=== PATIENT | female | born 1975 | race African-American/Black ===

== ENCOUNTER 2016-06-18 18:03 | Emergency (ER) | payer MEDICAID ==
[2014-02-21 08:15] VITALS: BMI 40.9
[2016-06-18 18:54] LABS: APPEARANCE CLEAR (CLEAR); BILIRUBIN NEGATIVE (NEGATIVE); COLOR STRAW (YELLOW); GLUCOSE NEGATIVE (NEGATIVE); KETONE NEGATIVE (NEGATIVE); LEUKOCYTE ESTERASE TRACE (NEGATIVE); NITRITE NEGATIVE (NEGATIVE); PROTEIN NEGATIVE (NEGATIVE); UROBILINOGEN NORMAL (NORMAL)
[2016-06-18 18:55] LABS: BACTERIA FEW /hpf (NONE SEEN); EPITHELIAL CELLS 0-5 /hpf (0-5); RED CELLS - URINE NONE SEEN /hpf (0-5); WHITE CELLS - URINE 0-5 /hpf (0-5)
== END 2016-06-18 19:40 | disposition home or self-care (01) ==
LOC: D.ER 18:03
PROVIDERS: Emergency Medicine
DX: R35.0 Frequency of micturition (principal); R10.2 Pelvic and perineal pain; F17.200 Nicotine dependence, unspecified, uncomplicated

== ENCOUNTER 2016-10-03 10:19 | Emergency (ER) | payer SELFPAY ==
[2014-02-21 08:15] VITALS: BMI 40.9
[2016-10-03 11:07] LABS: BASOPHILS 0.1 % (0-2); EOSINOPHILS 2.2 % (0-7); HEMOGLOBIN 13.7 g/dL (12-16); IMMATURE GRANULOCYTES 0.3 % (0-5); LYMPHOCYTES 18.3 % (15-50); MCH 29.9 pg (26.0-34.0); MCHC 33.4 g/dL (31.0-37.0); MCV 89.5 fL (80.0-100.0); MEAN PLATELET VOLUME 11.6 fL (7.4-10.4); MONOCYTES 9.1 % (2-11); PLATELET COUNT 245 10x3/uL (130-400); RBC 4.58 10x6/uL (4.00-5.40); WBC 8.8 10x3/uL (4.8-10.8)
== END 2016-10-03 11:45 | disposition home or self-care (01) ==
LOC: D.ER 10:19
PROVIDERS: Emergency Medicine
DX: J20.9 Acute bronchitis, unspecified (principal); R06.2 Wheezing

== ENCOUNTER → 2017-07-08 12:58 | Outpatient (CLI) | payer MEDICAID ==
[2014-02-21 08:15] VITALS: BMI 40.9
== END | disposition home or self-care (01) ==
LOC: D.MAMMO 06-08 15:45
DX: Z12.31 Encounter for screening mammogram for malignant neoplasm of breast (principal)

== ENCOUNTER 2018-06-06 07:04 | Day surgery (SDC) | payer OTHER ==
[2018-06-06] VITALS (7 sets, daily range): BP systolic 119–141; BP diastolic 65–84; Ht 157.5 cm; Wt 93.0 kg
[~2018-06-06] VITALS: Ht 157.5 cm; Wt 93.0 kg
[2018-06-06 07:41] LABS: BASOPHILS 0.4 % (0-2); EOSINOPHILS 3.2 % (0-7); HEMATOCRIT 39.9 % (36.0-48.0); HEMOGLOBIN 13.3 g/dL (12-16); LYMPHOCYTES 32.4 % (15-50); MCH 29.2 pg (26.0-34.0); MCHC 33.3 g/dL (31.0-37.0); MCV 87.7 fL (80.0-100.0); MEAN PLATELET VOLUME 11.9 fL (7.4-10.4); MONOCYTES 7.8 % (2-11); NEUTROPHILS 56.2 % (40-80); PLATELET COUNT 211 10x3/uL (130-400); RBC 4.55 10x6/uL (4.00-5.40); RDW 13.6 % (11.5-14.5)
[2018-06-06 07:50] LABS: CALC OSMOLALITY 281 mosm/kg (275-300); CALCIUM 8.4 mg/dL (8.5-10.1); CARBON DIOXIDE 26.2 mmol/L (21.0-32.0); CHLORIDE - SERUM 108 mmol/L (98-107); CREATININE - SERUM 0.8 mg/dL (0.6-1.3); GLUCOSE 102 mg/dL (74-106); POTASSIUM - SERUM 3.8 mmol/L (3.5-5.1); SODIUM 142 mmol/L (136-145); UREA NITROGEN 10 mg/dL (7-18); eGFR NON AFRICAN AMERICAN 84 mL/min (90-120)
[2018-06-06] MEDS ORDERED: HYDROCODON-ACE1 EAC7 (07:59)
[2018-06-06 08:03] LABS: HCG URINE NEGATIVE (NEGATIVE)
--- NOTE | 2018-06-06 15:08 | NUR ---
THIS RN AT BEDSIDE FOR DILAUDID PAIN MEDICATION ADMIN. FAMILY X 3 PRESENT. PT HAS PERIODS OF SLEEP, BUT WAKES AND ABLE TO CONVERSE WITH FAMILY. PT REPORTS ABD PAIN 10/10. 2 ML OF DILAUDID DILUTED IN 5ML GIVEN SIVP OVER 5MINS. PT REQUESTING TO BE REPOSITIONED. WILL HAVE 2ND RN TO COME TO ROOM TO ASSIST.
--- NOTE | 2018-06-06 15:45 | NUR ---
THIS NURSE TO ROOM- VS DONE. PT DROWSY BUT RESPONSIVE TO VERBAL STIMULI. INCUSIONS WNL. FAMILY AT BEDSIDE.
--- NOTE | 2018-06-06 15:50 | NUR ---
ICE WATER GIVEN ALONG WITH SPRITE- PT TOLERATING WELL.
--- NOTE | 2018-06-06 16:11 | NUR ---
DR BLACKMON IN UNIT. ORDERS RECEIVED TO REMOVE MOORE CATH AND SALINE LOCK IV.
--- NOTE | 2018-06-06 16:45 | NUR ---
DR BLACKMON IN ROOM TO SEE PT. DR BLACKMON STATES THAT PT IS WANTING TO GO HOME TONIGHT.
--- NOTE | 2018-06-06 17:05 | NUR ---
TORADOL GIVEN. IV CHANGED TO SALINE LOCK- FLUSHED WITH NS.
--- NOTE | 2018-06-06 17:20 | NUR ---
MOORE CATH REMOVED POST BULB DEFLATED- 450CC URINE IN BAG. AFTER MOORE OUT PT STATES FEELS LIKE NEEDS TO VOID. AMBULATED TO BATHROOM- UNABLE TO VOID. RETURNED TO BED. CALL LIGHT IN REACH. FAMILY AT BEDSIDE.
--- NOTE | 2018-06-06 17:44 | NUR ---
rena area cleansed per pt request.
--- NOTE | 2018-06-06 17:45 | NUR ---
pt requesting food. pt requesting pain medication.
--- NOTE | 2018-06-06 19:07 | NUR ---
TALKING ON PHONE. STATES THAT PAIN IS GETTING BETTER BUT WOULD LIKE PAIN MEDICATION. RATES PAIN AN 8 ON SCALE OF 0-10.
--- NOTE | 2018-06-06 19:30 | NUR ---
PATIENT BROUGHT SANDWICH TRAY BY GASTON MELENDEZ
[2018-06-06] MEDS ORDERED: PERCOCET 7.5/321 TAB PO (20:03)
[2018-06-06] MEDS ORDERED: NEURONTIN 300300 MG (20:05)
[2018-06-06] MEDS ORDERED: MOBIC7.5 MG PO (20:05)
--- NOTE | 2018-06-06 20:25 | NUR ---
REPORT FROM JEANNETTE FELDMAN THAT PATIENT HAS A DISCHARGE ORDER AND THAT SHE DID ALL THE DISCHARGE PAPERWORK. PAPERWORK TAKEN IN TO PATIENTS ROOM AND DISCHARGE INSTRUCTIONS PROVIDED. ALL QUESTIONS ANSWERED AND PAPER COPIES PROVIDED. PT WAS ALREADY PROVIDED WITH HER PRESCRIPTIONS PRIOR TO NOW BY ALEX FELDMAN. IV DISCONTINUED WITHOUT INCIDENT, CATHETER INTACT AND PRESSURE AND BANDAID APPLIED.
--- NOTE | 2018-06-06 20:40 | NUR ---
PATIENT VOIDED 100ML CLEAR YELLOW URINE, CLEAN PAD AND PANTIES PLACED. PT CHANGED INTO HER OWN CLOTHES AND AMBULATED TO WHEELCHAIR. PT ESCORTED TO POV WITH FAMILY AT THIS TIME IN STABLE CONDITION.
== END 2018-06-06 20:40 | disposition home or self-care (01) ==
LOC: D.OPS 07:04 → D.PAN 08:40 → D.OPS 09:10 → D.SDCHOLD 12:42 → D.OPS 12:42 → D.LD 13:22 → D.SDCHOLD 13:22 → D.LD 14:44 → D.OPS 20:40
PROVIDERS: Obstetrics & Gynecology
DX: N93.8 Other specified abnormal uterine and vaginal bleeding (principal); N94.6 Dysmenorrhea, unspecified; K21.9 Gastro-esophageal reflux disease without esophagitis; Z72.0 Tobacco use

== ENCOUNTER 2019-04-22 07:25 | Emergency (ER) | payer SELFPAY ==
[~2019-04-22] VITALS: Ht 157.5 cm; Wt 90.9 kg
[~2019-04-22 07:25] MED LIST: HYDROCODON-ACE1 EAC7; MOBIC7.5 MG PO; NEURONTIN 300300 MG; PERCOCET 7.5/321 TAB PO
[2019-04-22 07:31] VITALS: Ht 157.5 cm; Wt 90.9 kg
[2019-04-22] MEDS ORDERED: CLEOCIN HCL300 MG PO (07:36)
[2019-04-22] MEDS ORDERED: ZITHROMAX500 MG PO (07:51)
[2019-04-22] MEDS ORDERED: GUAIFEN-CODEINE10 ML PO (07:51)
[2019-04-22 08:04] VITALS: BP 126/74
== END 2019-04-22 08:04 | disposition home or self-care (01) ==
LOC: D.ER 07:25
DX: J20.9 Acute bronchitis, unspecified (principal); K21.9 Gastro-esophageal reflux disease without esophagitis; Z72.0 Tobacco use

== ENCOUNTER 2019-06-01 15:23 | Emergency (ER) | payer MEDICAID ==
[~2019-06-01] VITALS: Ht 157.5 cm; Wt 90.9 kg
[~2019-06-01 15:23] MED LIST changes: +CLEOCIN HCL300 MG PO; +GUAIFEN-CODEINE10 ML PO; +ZITHROMAX500 MG PO
[2019-06-01 15:33] VITALS: Ht 157.5 cm; Wt 90.9 kg
[2019-06-01] MEDS ORDERED: [UNRECOGNIZED DRUG - REMARK] (15:36)
[2019-06-01 16:07] LABS: BASOPHILS 0.3 % (0-2); EOSINOPHILS 2.3 % (0-7); HEMATOCRIT 37.8 % (36.0-48.0); HEMOGLOBIN 12.7 g/dL (12-16); IMMATURE GRANULOCYTES 0.2 % (0-5); LYMPHOCYTES 42.8 % (15-50); MCH 29.7 pg (26.0-34.0); MCHC 33.6 g/dL (31.0-37.0); MCV 88.5 fL (80.0-100.0); NEUTROPHILS 48.4 % (40-80); PLATELET COUNT 215 10x3/uL (130-400); RBC 4.27 10x6/uL (4.00-5.40); RDW 13.5 % (11.5-14.5)
[2019-06-01] MEDS ORDERED: HYDROCODON-ACE1 EAC2 PO (16:16)
[2019-06-01 16:27] LABS: CALC OSMOLALITY 279 mosm/kg (275-300); CALCIUM 8.8 mg/dL (8.5-10.1); CARBON DIOXIDE 27.1 mmol/L (21.0-32.0); CHLORIDE - SERUM 106 mmol/L (98-107); CREATININE - SERUM 0.7 mg/dL (0.6-1.3); GLUCOSE 103 mg/dL (74-106); POTASSIUM - SERUM 3.9 mmol/L (3.5-5.1); SODIUM 141 mmol/L (136-145); UREA NITROGEN 9 mg/dL (7-18); eGFR NON AFRICAN AMERICAN > 90 mL/min (90-120)
[2019-06-01 16:36] VITALS: BP 136/79
[2019-06-01 16:41] LABS: ALBUMIN 3.3 g/dL (3.4-5.0); ALKALINE PHOSPHATASE 116 U/L (46-116); ALT (SGPT) 25 U/L (10-68); CKMB 0.3 U/L (0.0-3.6); CREATINE KINASE 163 UL (21-215); TROPONIN-I < 0.017 ng/mL (0.000-0.060)
== END 2019-06-01 16:36 | disposition home or self-care (01) ==
LOC: D.ER 15:23
PROVIDERS: Emergency Medicine
DX: M54.89 Other dorsalgia (principal); M54.9 Dorsalgia, unspecified

== ENCOUNTER 2020-02-21 10:50 | Emergency (ER) | payer MEDICAID ==
[~2020-02-21] VITALS: Ht 157.5 cm; Wt 90.9 kg
[~2020-02-21 10:50] MED LIST changes: +HYDROCODON-ACE1 EAC2 PO; +[UNRECOGNIZED DRUG - REMARK]
[2020-02-21 11:14] VITALS: BP 121/77; Ht 157.5 cm; Wt 90.9 kg
[2020-02-21] MEDS ORDERED: HYDROCODON-ACE1 EA10 PO (11:19)
== END 2020-02-21 14:40 | disposition left against medical advice (07) ==
LOC: D.ER 10:50
DX: R20.0 Anesthesia of skin (principal)

== ENCOUNTER → 2020-03-18 08:24 | Outpatient (CLI) | payer MEDICAID ==
[2020-02-21 11:14] VITALS: BMI 36.6
[~2020-03-18 08:24] MED LIST changes: +HYDROCODON-ACE1 EA10 PO
== END | disposition home or self-care (01) ==
LOC: D.MRI 08:24
PROVIDERS: ATTEND Family Medicine
DX: M54.5 Low back pain (principal)